=== PATIENT | female | born 1990 | race Caucasian/White ===

== ENCOUNTER → 2021-05-07 | Outpatient (CLI) | payer MEDICAID | LOC: RAD 17:05 | DX: R91.8 Other nonspecific abnormal finding of lung field (principal); R05.9 Cough, unspecified ==

== ENCOUNTER → 2023-04-01 | Outpatient (RCR) | payer OTHER | LOC: PT | DX: M25.551 Pain in right hip (principal) ==

== ENCOUNTER 2023-04-07 08:00 | Outpatient (RCR) | payer OTHER | END 2023-05-02 | disposition home or self-care (01) | LOC: PT | DX: M25.551 Pain in right hip (principal) ==

== ENCOUNTER 2023-05-04 08:00 | Outpatient (RCR) | payer OTHER | END 2023-06-02 | disposition home or self-care (01) | LOC: PT | DX: M25.551 Pain in right hip (principal) ==

== ENCOUNTER 2023-06-03 08:00 | Outpatient (RCR) | payer OTHER | END 2023-07-01 | disposition home or self-care (01) | LOC: PT | DX: M25.551 Pain in right hip (principal) ==